=== PATIENT | female | born 1945 | race Caucasian/White ===

== ENCOUNTER 2019-03-08 05:14 | Inpatient (IN) | payer MEDICARE, BC ==
[~2019-03-08] VITALS: Ht 160 cm; Wt 93.6 kg
[2019-03-08 06:10] VITALS: BP 111/76
[2019-03-08] MEDS ORDERED: LACTATED RINGERS 1,000 ML IV SCH (06:18)
[2019-03-08] MEDS ORDERED: CLINDAMYCIN 150 MG/ML, 6ML ONE (06:19)
[2019-03-08] MEDS ORDERED: GABA800T5 PO (06:28)
[2019-03-08] MEDS ORDERED: OXYC-302 PO (06:28)
[2019-03-08] MEDS ORDERED: LOSA50TA14 PO (06:28)
[2019-03-08] MEDS ORDERED: ROPI1TAB2 PO (06:28)
[2019-03-08] MEDS ORDERED: CETI10TA24 PO (06:28)
[2019-03-08] MEDS ORDERED: ATOR10TA PO (06:28)
[2019-03-08] MEDS ORDERED: SOLI10TA2 PO (06:28)
[2019-03-08] MEDS ORDERED: METO-93 PO (06:28)
[2019-03-08] MEDS ORDERED: ONDA4TAB7 PO (06:28)
[2019-03-08] MEDS ORDERED: DIPH25CA61 PO (06:29)
[2019-03-08] MEDS ORDERED: VANCOMYCIN PER PHARMACY MC PRN (06:30)
[2019-03-08] MEDS ORDERED: VANCOMYCIN 1,700 MG in SODIUM CHLORIDE 0.9% 250 ML IV ONE (06:30)
[2019-03-08] MEDS ORDERED: PLEASE ENTER ALLERGIES MC SCH (06:30)
[2019-03-08] MEDS ORDERED: KETOROLAC 30 MG/1 ML ONE (06:57)
[2019-03-08] MEDS ORDERED: SENNA/DOCUSATE TABLET PO PRN (07:00)
[2019-03-08] MEDS ORDERED: BISACODYL 10 MG SUPP PR PRN (07:00)
[2019-03-08] MEDS ORDERED: ONDANSETRON 2MG/ML, 2ML IV PRN (07:00)
[2019-03-08] MEDS ORDERED: ACETAMINOPHEN 325 MG TABLET PO PRN (07:00)
[2019-03-08] MEDS ORDERED: ONDANSETRON 4 MG TABLET PO PRN (07:00)
[2019-03-08] MEDS ORDERED: DIPHENHYDRAMINE 25 MG CAPSULE PO PRN (07:00)
[2019-03-08 07:12] LABS: BASOPHILS # (AUTO) 0.05 x10^3/uL (0-0.1); BASOPHILS % (AUTO) 1 % (0-1); EOSINOPHILS # (AUTO) 0.34 x10^3/uL (0-0.4); EOSINOPHILS % (AUTO) 4 % (1-7); LYMPHOCYTES # (AUTO) 2.12 x10^3/uL (1-3.4); LYMPHOCYTES % (AUTO) 28 % (22-44); MD NO; MEAN CORPUSCULAR HEMOGLOBIN 30.9 pg (27.0-34.8); MEAN CORPUSCULAR HGB CONC 33.3 g/dL (32.4-35.8); MEAN CORPUSCULAR VOLUME 92.8 fL (80-100); MEAN PLATELET VOLUME 7.5 fL (7.4-10.4); MONOCYTES # (AUTO) 0.66 x10^3/uL (0.2-0.8); MONOCYTES % (AUTO) 9 % (2-9); NEUTROPHILS # (AUTO) 4.56 x10^3/uL (1.8-6.8); NEUTROPHILS % (AUTO) 59 % (42-75); PLATELET COUNT 264 x10^3/uL (130-400); RED BLOOD COUNT 4.45 x10^6/uL (3.82-5.3); RED CELL DISTRIBUTION WIDTH 13.8 % (9.6-15.2)
[2019-03-08] MEDS ORDERED: OXYcodone 5 MG/5 ML ORAL.SOL UDC PO PRN (08:00)
[2019-03-08] MEDS ORDERED: PROMETHAZINE 25 MG SUPP PR PRN (08:00)
[2019-03-08] MEDS ORDERED: HYDROmorphone 1 MG/ML, 1ML INJ IVPush PRN (08:00)
[2019-03-08] MEDS ORDERED: FENTANYL PF 250 MCG/5ML ONE (08:06)
[2019-03-08] MEDS ORDERED: DEXAMETHASONE 4 MG/ML, 1ML ONE ×2 (08:08)
[2019-03-08] MEDS ORDERED: CEFAZOLIN 1,000 MG ONE ×2 (08:08)
[2019-03-08] MEDS ORDERED: SUCCINYLCHOLINE 20 MG/ML, 10ML ONE (08:08)
[2019-03-08] MEDS ORDERED: GLYCOPYRROLATE 0.2MG/1ML, 5ML ONE (08:08)
[2019-03-08] MEDS ORDERED: PROPOFOL 10 MG/ML, 20ML ONE (08:08)
[2019-03-08] MEDS ORDERED: EPHEDRINE 50 MG/ML, 1ML ONE (08:08)
[2019-03-08] MEDS ORDERED: ONDANSETRON 2MG/ML, 2ML ONE (08:08)
[2019-03-08] MEDS: DOCUSATE 100 MG CAPSULE PO SCH ×2 (09:00→20:23)
[2019-03-08] MEDS: OXYcodone IR 5MG TABLET PO SCH ×2 (09:00→21:20)
[2019-03-08] MEDS: KETOROLAC 30 MG/1 ML IV SCH ×2 (09:00→15:38)
[2019-03-08] MEDS: CETIRIZINE 10 MG TABLET PO SCH (09:00)
[2019-03-08] MEDS: ATORVASTATIN 10 MG TABLET PO SCH (09:00)
[2019-03-08] MEDS: LOSARTAN 50MG TABLET PO SCH ×2 (09:00→20:23)
[2019-03-08] MEDS: METOPROLOL SUCCINATE 50 MG TAB.ER.24H PO SCH (09:00)
[2019-03-08] MEDS ORDERED: FENTANYL PF 100 MCG/2ML ONE (09:23)
[2019-03-08] MEDS: FENTANYL PF 100 MCG/2ML IV PRN ×2 (09:25→09:39)
[2019-03-08] MEDS ORDERED: OXYcodone 5 MG/5 ML ORAL.SOL UDC ONE (10:02)
[2019-03-08] MEDS ORDERED: ACETAMINOPHEN 650 MG/20.3 ML UDC ONE (10:02)
[2019-03-08] MEDS ORDERED: LORazepam 2 MG/ML, 1ML ONE (10:23)
[2019-03-08] MEDS ORDERED: ACETAMINOPHEN 650 MG/20.3 ML UDC PO PRN (10:30)
[2019-03-08] MEDS ORDERED: LORazepam 2 MG/ML, 1ML IVPush PRN (10:30)
[2019-03-08] MEDS: ROPINIROLE 1MG TABLET PO SCH ×3 (15:38→21:20)
[2019-03-08] MEDS: GABAPENTIN 400 MG CAPSULE PO SCH ×3 (15:39→20:23)
[2019-03-08] MEDS: CEFAZOLIN PMX 2GM/50ML 50 ML IVPB SCH (15:39)
[2019-03-08] MEDS: D5%-0.45% NACL 1,000 ML IV SCH (15:46)
[2019-03-08 19:27] VITALS: BP 122/77
[2019-03-08] MEDS: OXYBUTYNIN CHLORIDE 5 MG TABLET PO SCH (20:23)
[2019-03-08] MEDS: morphine SULFATE 10 MG/ML, 1ML IV PRN ×2 (20:24→21:20)
[2019-03-09 00:14] VITALS: BP 121/81
[2019-03-09] MEDS: KETOROLAC 30 MG/1 ML IV SCH (00:43)
[2019-03-09] MEDS: CEFAZOLIN PMX 2GM/50ML 50 ML IVPB SCH ×2 (00:43→10:02)
[2019-03-09] MEDS: morphine SULFATE 10 MG/ML, 1ML IV PRN ×3 (00:43→13:36)
[2019-03-09] MEDS: D5%-0.45% NACL 1,000 ML IV SCH ×3 (01:00→21:00)
[2019-03-09] MEDS: MAGNESIUM HYDROXIDE 8%, 30ML UDC PO PRN (03:47)
[2019-03-09] MEDS: OXYcodone IR 5MG TABLET PO SCH ×4 (03:48→15:13)
[2019-03-09 04:47] VITALS: BP 109/80
[2019-03-09 08:10] VITALS: BP 127/82
[2019-03-09] MEDS: DOCUSATE 100 MG CAPSULE PO SCH ×2 (10:00→21:34)
[2019-03-09] MEDS: METOPROLOL SUCCINATE 50 MG TAB.ER.24H PO SCH (10:01)
[2019-03-09] MEDS: CETIRIZINE 10 MG TABLET PO SCH (10:01)
[2019-03-09] MEDS: OXYBUTYNIN CHLORIDE 5 MG TABLET PO SCH ×2 (10:01→21:34)
[2019-03-09] MEDS: ROPINIROLE 1MG TABLET PO SCH ×3 (10:01→21:34)
[2019-03-09] MEDS: ATORVASTATIN 10 MG TABLET PO SCH (10:01)
[2019-03-09] MEDS: LOSARTAN 50MG TABLET PO SCH ×2 (10:01→21:33)
[2019-03-09] MEDS: KETOROLAC 30 MG/1 ML IVPush PRN ×2 (10:02→18:18)
[2019-03-09] MEDS: GABAPENTIN 400 MG CAPSULE PO SCH ×3 (10:02→21:34)
[2019-03-09] MEDS: DIAZEPAM 2 MG TABLET PO PRN ×2 (10:06→16:43)
[2019-03-09] MEDS ORDERED: PHARMACOKINETIC CONSULTATION MC ONE (12:00)
[2019-03-09] MEDS ORDERED: PHARMACOKINETIC MONITORING MC PRN (12:00)
[2019-03-09 12:23] VITALS: BP 110/75
[2019-03-09 13:05] LABS: CREATININE 0.81 mg/dL (0.55-1.02)
[2019-03-09] MEDS: VANCOMYCIN 1,700 MG in SODIUM CHLORIDE 0.9% 250 ML IV SCH (18:24)
[2019-03-09 19:08] VITALS: BP 106/71
[2019-03-10 01:54] VITALS: BP 111/76
[2019-03-10] MEDS: OXYcodone 5 MG/5 ML ORAL.SOL UDC PO PRN ×2 (04:31→13:44)
[2019-03-10] MEDS: MAGNESIUM HYDROXIDE 8%, 30ML UDC PO PRN (04:31)
[2019-03-10] MEDS: KETOROLAC 30 MG/1 ML IVPush PRN (04:31)
[2019-03-10] MEDS: D5%-0.45% NACL 1,000 ML IV SCH ×2 (05:51→16:38)
[2019-03-10 07:22] VITALS: BP 85/58
[2019-03-10] MEDS: DOCUSATE 100 MG CAPSULE PO SCH ×2 (09:45→21:00)
[2019-03-10] MEDS: ATORVASTATIN 10 MG TABLET PO SCH (09:46)
[2019-03-10] MEDS: ROPINIROLE 1MG TABLET PO SCH ×3 (09:46→21:20)
[2019-03-10] MEDS: LOSARTAN 50MG TABLET PO SCH ×2 (09:47→21:20)
[2019-03-10] MEDS: CETIRIZINE 10 MG TABLET PO SCH (09:47)
[2019-03-10] MEDS: OXYBUTYNIN CHLORIDE 5 MG TABLET PO SCH ×2 (09:47→21:20)
[2019-03-10] MEDS: GABAPENTIN 400 MG CAPSULE PO SCH ×3 (09:47→21:20)
[2019-03-10] MEDS: METOPROLOL SUCCINATE 50 MG TAB.ER.24H PO SCH (09:49)
[2019-03-10 12:36] VITALS: BP 87/61
[2019-03-10 20:58] VITALS: BP 110/70
[2019-03-10] MEDS: OMEPRAZOLE 20 MG CAPSULE.DR PO SCH (21:20)
[2019-03-11 00:40] VITALS: BP 112/79
[2019-03-11] MEDS: OXYcodone 5 MG/5 ML ORAL.SOL UDC PO PRN ×4 (00:43→21:06)
[2019-03-11] MEDS: D5%-0.45% NACL 1,000 ML IV SCH ×3 (01:45→23:00)
[2019-03-11] MEDS: VANCOMYCIN 1,700 MG in SODIUM CHLORIDE 0.9% 250 ML IV SCH (06:30)
[2019-03-11 07:39] VITALS: BP 129/87
[2019-03-11] MEDS: CETIRIZINE 10 MG TABLET PO SCH (08:15)
[2019-03-11] MEDS: OXYBUTYNIN CHLORIDE 5 MG TABLET PO SCH ×2 (08:16→21:04)
[2019-03-11] MEDS: ROPINIROLE 1MG TABLET PO SCH ×3 (08:16→21:05)
[2019-03-11] MEDS: METOPROLOL SUCCINATE 50 MG TAB.ER.24H PO SCH (08:16)
[2019-03-11] MEDS: DOCUSATE 100 MG CAPSULE PO SCH ×2 (08:16→21:04)
[2019-03-11] MEDS: ATORVASTATIN 10 MG TABLET PO SCH (08:16)
[2019-03-11] MEDS: LOSARTAN 50MG TABLET PO SCH ×2 (08:16→21:05)
[2019-03-11] MEDS: GABAPENTIN 400 MG CAPSULE PO SCH ×3 (08:16→21:05)
[2019-03-11] MEDS: morphine SULFATE 10 MG/ML, 1ML IV PRN (10:31)
[2019-03-11 12:53] VITALS: BP 104/72
[2019-03-11 19:38] VITALS: BP 138/84
[2019-03-11] MEDS: OMEPRAZOLE 20 MG CAPSULE.DR PO SCH (21:05)
[2019-03-11] MEDS: DIPHENHYDRAMINE 25 MG CAPSULE PO PRN (22:16)
[2019-03-12 01:16] VITALS: BP 118/74
[2019-03-12] MEDS: OXYcodone 5 MG/5 ML ORAL.SOL UDC PO PRN ×3 (02:00→14:00)
[2019-03-12] MEDS: DIPHENHYDRAMINE 25 MG CAPSULE PO PRN ×2 (04:43→11:25)
[2019-03-12 07:17] VITALS: BP 125/81
[2019-03-12] MEDS: D5%-0.45% NACL 1,000 ML IV SCH (07:51)
[2019-03-12] MEDS: LOSARTAN 50MG TABLET PO SCH (08:05)
[2019-03-12] MEDS: METOPROLOL SUCCINATE 50 MG TAB.ER.24H PO SCH (08:05)
[2019-03-12] MEDS: ATORVASTATIN 10 MG TABLET PO SCH (08:05)
[2019-03-12] MEDS: CETIRIZINE 10 MG TABLET PO SCH (08:05)
[2019-03-12] MEDS: ROPINIROLE 1MG TABLET PO SCH ×2 (08:05→16:12)
[2019-03-12] MEDS: DOCUSATE 100 MG CAPSULE PO SCH (08:05)
[2019-03-12] MEDS: OXYBUTYNIN CHLORIDE 5 MG TABLET PO SCH (08:05)
[2019-03-12] MEDS: GABAPENTIN 400 MG CAPSULE PO SCH ×2 (08:05→16:12)
[2019-03-12 13:15] VITALS: BP 111/62
[2019-03-12 17:50] VITALS: BP 118/68
== END 2019-03-12 17:57 | disposition home or self-care (01) | DRG 483 ==
LOC: ORIP 05:14 → 4NE 13:55 → EDSTATUS 14:30
PROVIDERS: ADMIT Orthopaedic Surgery; ATTEND Orthopaedic Surgery
PROC: 0PSC04Z Reposition Right Humeral Head with Internal Fixation Device, Open Approach (ICD-10-PCS; 2019-03-08)
PROC: 3E0T3BZ Introduction of Anesthetic Agent into Peripheral Nerves and Plexi, Percutaneous Approach (ICD-10-PCS; 2019-03-08)
PROC: 0RRJ00Z Replacement of Right Shoulder Joint with Reverse Ball and Socket Synthetic Substitute, Open Approach (ICD-10-PCS; principal; 2019-03-08 07:00)
DX: S42.241A 4-part fracture of surgical neck of right humerus, initial encounter for closed fracture (principal); M65.9 Synovitis and tenosynovitis, unspecified; I10 Essential (primary) hypertension; W18.39XA Other fall on same level, initial encounter; Y93.89 Activity, other specified; Y92.89 Other specified places as the place of occurrence of the external cause; Y99.8 Other external cause status; Z88.0 Allergy status to penicillin; Z88.5 Allergy status to narcotic agent; Z88.8 Allergy status to other drugs, medicaments and biological substances
CPT/HCPCS: 36415; 82565; 85025; 87081; 93005; C1713; C1776; G0378; J0690; J1100; J1885; J2405; J2704; J3010; J3370; C1769; J0330; J2060; J2270; J7050; J7120; Q0163